=== PATIENT | female | born 1970 | race Caucasian/White ===

== ENCOUNTER 2022-01-07 19:04 | Emergency (ER) | payer OTHER ==
[~2022-01-07 19:04] MED LIST: MOBIC7.5 MG PO; VISTARIL25 MG PO
[2022-01-07 20:57] LABS: INFLUENZA A NAA NEGATIVE (NEGATIVE)
[2022-01-07 21:00] LABS: CORONAVIRUS 2019 SARS-COV-2 POSITIVE (NEGATIVE)
[2022-01-07] MEDS ORDERED: PAXLOVID 150-11 EACH PO (21:24)
== END 2022-01-07 21:41 | disposition home or self-care (01) ==
LOC: FER 19:04
PROVIDERS: Physician Assistant
DX: U07.1 COVID-19 (principal); I10 Essential (primary) hypertension; F17.210 Nicotine dependence, cigarettes, uncomplicated; Z88.0 Allergy status to penicillin; Z88.5 Allergy status to narcotic agent; Z79.899 Other long term (current) drug therapy
CPT/HCPCS: 93971; U0002